=== PATIENT | female | born 1970 | race Two or more races ===

== ENCOUNTER 2025-06-19 17:45 | Emergency (ER) | payer OTHER ==
[~2025-06-19] VITALS: Ht 162.6 cm; Wt 59.0 kg
[2025-06-19 17:57] VITALS: BP 163/88
[2025-06-19 18:21] LABS: PLATELET COUNT (AUTO) 190 K/uL (179-408); RED BLOOD CELL COUNT(AUTO) 4.31 MIL/uL (3.63-4.92); RED CELL DISTRIBUTION WIDTH 13.2 % (12.3-17.7); WHITE BLOOD COUNT (AUTO) 8.2 K/uL (3.8-11.8)
[2025-06-19 18:33] LABS: ASPARTATE AMINOTRANSFERASE 11.0 U/L (15-37); CREATININE 0.7 mg/dL (0.6-1.3); SODIUM SERUM 142.0 mmol/L (136-145); TOTAL PROTEIN, SERUM 7.9 g/dL (6.4-8.2); UREA NITROGEN, BLOOD 16.0 mg/dL (7-18)
[2025-06-19 19:36] VITALS: BP 163/88; O2SAT 96
== END 2025-06-19 19:36 | disposition home or self-care (01) ==
LOC: ER 17:55 → EDSEX 17:55 → ER 19:36
DX: R06.00 Dyspnea, unspecified (principal); I10 Essential (primary) hypertension; J44.89 Other specified chronic obstructive pulmonary disease; Z72.0 Tobacco use; Z20.822 Contact with and (suspected) exposure to COVID-19
CPT/HCPCS: 36415; 71045; 85025; 85730; A4606; A4663